=== PATIENT | female | born 1960 | race Caucasian/White ===

== ENCOUNTER 2017-08-05 16:11 | Day surgery (SDC) | payer OTHER ==
[~2017-08-05] VITALS: Ht 172.7 cm; Wt 93.2 kg
--- NOTE | ~2017-08-05 | OP ---
PATIENT NAME: KANDICE BOUCHER MEDICAL RECORD: [id number] LOCATION:D[facility] ADMISSION DATE: SURGEON: DANIEL CAI MD DATE OF OPERATION: 08/06/2017 PREOPERATIVE DIAGNOSIS: Right bimalleolar ankle fracture. POSTOPERATIVE DIAGNOSIS: Right bimalleolar ankle fracture. PROCEDURE: Open reduction and internal fixation of right bimalleolar ankle fracture. SURGEON: Daniel Cai MD ANESTHESIA: General. INTRAOPERATIVE COMPLICATIONS: None. SUMMARY OF PATHOLOGIC FINDINGS: Essentially none. The patient had very clean fractures of both the distal aspect of the lateral malleolus as well as a small but robust piece of the medial malleolus. OPERATIVE SUMMARY IN DETAIL: After obtaining the appropriate preoperative orthopedic surgery consent as well as anesthetic consultation, evaluation, and clearance, the patient was brought to the operating room and placed on the operating table in supine position. After general laryngeal mask airway was administered, tourniquet was placed on the proximal aspect of the right lower extremity. Right lower extremity was then prepped and draped in routine sterile fashion. Leg was elevated and exsanguinated. Tourniquet was inflated to 350 mmHg. An incision was made from the distal tip of the lateral malleolus to just above the fracture. Dissection was carried down. Periosteum was gently excised from the fracture. Small curettage and pick were used to remove all hematoma and this was also evacuated with irrigation. The lateral malleolus was then reduced and held in place with a provisional K-wire. The [place] periarticular VariAx plate was then utilized to fix the lateral malleolus sequentially with combination of both locking and compression screws. Having completed this, under fluoroscopic guidance, attention was then turned to the medial malleolus. A small incision was made and again taken down to the level of the fracture. The fracture was cleaned free of all fracture fragments. It was held in reduction while the cannulated wires were used under fluoro to place the screws. Medial malleolar screws of compression style were placed with good compression. Final radiographs were submitted to radiologist for review. Wounds were copiously irrigated and closed in usual fashion. Sterile dressings were applied. Posterior L&U was applied. The patient was awakened and taken to recovery in stable condition. All final needle and sponge counts were correct. TRANSINT:[id number] Voice Confirmation ID: [id number] DOCUMENT ID: [id number] OPERATIVE REPORT [id number] KANDICE BOUCHER MD, DANIEL PIPER at 1657 CC: [id number] DICTATION DATE: 08/19/17 1416 MARKETING CONSULTANT: 08/19/17 1509 [facility] 08/06/17 [place] [id number] [place] [id number]
[2017-08-05 16:31] LABS: BASOPHILS 0.3 % (0-2); EOSINOPHILS 0.7 % (0-7); HEMATOCRIT 41.7 % (36.0-48.0); IMMATURE GRANULOCYTES 0.2 % (0-5); LYMPHOCYTES 9.2 % (15-50); MCH 30.5 pg (26.0-34.0); MCHC 33.6 g/dL (31.0-37.0); MCV 90.8 fL (80.0-100.0); NEUTROPHILS 84.6 % (40-80); PLATELET COUNT 245 10x3/uL (130-400); RBC 4.59 10x6/uL (4.00-5.40); RDW 12.1 % (11.5-14.5); WBC 11.9 10x3/uL (4.8-10.8)
[2017-08-05 16:56] LABS: ALBUMIN 4.2 g/dL (3.4-5.0); ANION GAP 16.3 mmol/L (8-16); BILIRUBIN - TOTAL 0.29 mg/dL (0.2-1.3); CALCIUM 9.5 mg/dL (8.5-10.1); POTASSIUM - SERUM 4.3 mmol/L (3.5-5.1); PROTEIN - SERUM 7.8 g/dL (6.4-8.2)
[2017-08-05 20:37] VITALS: BP 135/86
[2017-08-05 21:29] VITALS: BP 135/86
[2017-08-05 22:37] VITALS: BP 135/86; Ht 172.7 cm; Wt 93.2 kg
[2017-08-06 00:44] VITALS: BP 150/74
[2017-08-06 04:00] VITALS: BP 117/72
[2017-08-06] MEDS ORDERED: ELIQUIS2.5 MG PO (08:38)
[2017-08-06 08:39] VITALS: BP 125/71
[2017-08-06] MEDS ORDERED: OXYCODONE HCL5 MG PO (08:39)
== END 2017-08-06 11:00 | disposition home or self-care (01) ==
LOC: OBSVTIME → D.OPS 16:11 → EDSTATUS 16:45 → OBSVTIME 17:08 → D.ER 17:08 → D.MS 17:08 → D.EDHOLD 17:08 → D.MS 17:08 → D.EDHOLD 20:02 → D.MS 20:02 → D.OPS 08-06 11:00 → D.MS 08-06 11:00
PROVIDERS: Emergency Medicine
DX: S82.841A Displaced bimalleolar fracture of right lower leg, initial encounter for closed fracture (principal); Z01.812 Encounter for preprocedural laboratory examination